=== PATIENT | female | born 1985 | race Caucasian/White ===

== ENCOUNTER 2024-07-16 13:12 | Outpatient (CLI) | payer OTHER | END 2024-07-16 14:07 | disposition home or self-care (01) | LOC: NST 13:12 | PROVIDERS: ATTEND Obstetrics & Gynecology Maternal & Fetal Medicine | DX: Z34.83 Encounter for supervision of other normal pregnancy, third trimester (principal) ==

== ENCOUNTER 2024-08-10 16:31 | Outpatient (CLI) | payer OTHER | END 2024-08-10 16:50 | disposition home or self-care (01) | LOC: NST 16:31 | PROVIDERS: ATTEND Obstetrics & Gynecology Gynecology | DX: Z34.83 Encounter for supervision of other normal pregnancy, third trimester (principal) ==

== ENCOUNTER 2024-08-24 08:07 | Outpatient (CLI) | payer OTHER | END 2024-08-24 09:34 | disposition home or self-care (01) | LOC: NST 08:07 | PROVIDERS: ATTEND Obstetrics & Gynecology Gynecology | DX: Z34.83 Encounter for supervision of other normal pregnancy, third trimester (principal) ==

== ENCOUNTER 2024-08-27 12:12 | Outpatient (CLI) | payer OTHER | END 2024-08-27 13:16 | disposition home or self-care (01) | LOC: NST 12:12 | PROVIDERS: ATTEND Obstetrics & Gynecology Gynecology | DX: Z34.83 Encounter for supervision of other normal pregnancy, third trimester (principal) ==

== ENCOUNTER 2024-08-28 14:16 | Inpatient (IN) | payer OTHER ==
[~2024-08-28] VITALS: Ht 167.6 cm; Wt 133.8 kg
[2024-08-28] MEDS ORDERED: FAMOTIDINE/PF 20 MG/2 ML VIAL IV PRN (14:30)
[2024-08-28] MEDS ORDERED: RINGERS SOLUTION,LACTATED 1,000 ML IV SCH (14:30)
[2024-08-28 15:55] VITALS: BP 120/79
[2024-08-28 16:10] LABS: HEMATOCRIT 34.2 % (36.0-45.00); HEMOGLOBIN 11.9 g/dL (12.0-15.00); MEAN CELL VOLUME 81.5 fL (80.00-100.00); MEAN CORPUSCULAR HEMOGLOBIN 28.4 pg (27.00-32.0); MEAN CORPUSCULAR HGB CONC 34.9 g/dl (32.0-36.0); PLATELET COUNT 243 K/uL (150-450); RED BLOOD COUNT 4.19 M/uL (4.00-6.00); RED CELL DISTRIBUTION WIDTH 15.2 % (11.5-14.5)
[2024-08-28 16:13] LABS: PH,URINE 6.5 (5.0-8.0); URINE APPEARANCE Cloudy; URINE BILIRRUBIN Negative (NEGATIVE); URINE BLOOD Negative; URINE COLOR Dark Yellow; URINE GLUCOSE Negative (NEGATIVE); URINE KETONE Trace (NEGATIVE); URINE LEUKOCYTE Moderate; URINE NITRATE Negative; URINE PROTEIN 30 (NEGATIVE)
[2024-08-28 16:17] LABS: URINE BACTERIA 8773.3 uL (0.0-1933); URINE EPITHELIAL CELLS 101.8 uL (0.0-38.8); URINE RBC 4.1 uL (0.0-20.8); URINE WBC 132.6 uL (0.0-23.2)
[2024-08-28 16:29] LABS: URINE CAST 0.76 uL (0.0-1.40)
[2024-08-28 16:44] LABS: BILIRUBIN TOTAL 0.33 mg/dL (0.3-1.2); CREATININE SERUM 0.51 mg/dL (0.55-1.02); GFR 132.89; GLOBULINA 3.6 G/DL (2.4-3.5); POTASSIUM 4.11 mEq/L (3.5-5.1); TOTAL PROTEIN 6.6 gm/dL (6.4-8.2)
[2024-08-28] MEDS ORDERED: MISOPROSTOL 25 MCG TABLET VAG ONE (19:00)
[2024-08-28] MEDS ORDERED: LABETALOL HCL 200 MG TABLET PO SCH (21:00)
[2024-08-28 21:23] VITALS: BP 114/59
[2024-08-29] VITALS: BP 90/49
[2024-08-29 04:00] VITALS: BP 93/56
[2024-08-29 07:24] VITALS: BP 136/80
[2024-08-29] MEDS ORDERED: OXYTOCIN 500 ML IV ONE (07:30)
[2024-08-29 11:30] VITALS: BP 124/82
[2024-08-29] MEDS ORDERED: RINGERS SOLUTION,LACTATED 1,000 ML IV SCH (12:15)
[2024-08-29] MEDS ORDERED: MORPHINE SULFATE 4 MG/ML CARTRIDGE IV PRN (12:15)
[2024-08-29] MEDS ORDERED: KETOROLAC TROMETHAMINE 30 MG VIAL IV SCH (12:15)
[2024-08-29] MEDS ORDERED: CEFAZOLIN SODIUM 1,000 MG VIAL IV ONE (12:30)
[2024-08-29] MEDS ORDERED: OXYTOCIN 1,000 ML IV ONE (12:30)
[2024-08-29] MEDS ORDERED: MORPHINE SULFATE 4 MG/ML VIAL IV ONE ×3 (15:00→16:30)
[2024-08-29] MEDS ORDERED: GABAPENTIN 300 MG CAPSULE PO SCH (17:00)
[2024-08-29] MEDS ORDERED: KETOROLAC TROMETHAMINE 30 MG VIAL IV ONE (17:30)
[2024-08-29] MEDS ORDERED: ACETAMINOPHEN 500 MG GEL..CAP PO SCH (18:00)
[2024-08-29] MEDS ORDERED: ONDANSETRON HCL 2 MG/ML VIAL IV SCH (18:00)
[2024-08-29 19:00] VITALS: BP 150/80
[2024-08-30] VITALS: BP 106/67
[2024-08-30] MEDS ORDERED: OxyCODONE HCL 5 MG TABLET (ROXICODONE) PO PRN (08:00)
[2024-08-30] MEDS ORDERED: KETOROLAC TROMETHAMINE 10 MG TABLET PO SCH (08:00)
[2024-08-30 08:10] VITALS: BP 112/64
[2024-08-30] MEDS ORDERED: DOCUSATE SODIUM 100MG CAP PO SCH (09:00)
[2024-08-30] MEDS ORDERED: OXYTOCIN 10 UNITS/ML VIAL IV ONE (10:15)
[2024-08-30] MEDS ORDERED: ERYTHROMYCIN BASE OPHT 1GM EACH TUBE OP ONE (10:15)
[2024-08-30 14:18] LABS: HEMATOCRIT 31.8 % (36.0-45.00); HEMOGLOBIN 10.8 g/dL (12.0-15.00); MEAN CELL VOLUME 84.7 fL (80.00-100.00); MEAN CORPUSCULAR HEMOGLOBIN 28.7 pg (27.00-32.0); MEAN CORPUSCULAR HGB CONC 33.9 g/dl (32.0-36.0); PLATELET COUNT 207 K/uL (150-450); RED BLOOD COUNT 3.76 M/uL (4.00-6.00); RED CELL DISTRIBUTION WIDTH 14.7 % (11.5-14.5)
[2024-08-30 16:43] VITALS: BP 101/62
[2024-08-31 01:49] VITALS: BP 116/75
[2024-08-31 08:50] VITALS: BP 120/81
== END 2024-08-31 13:32 | disposition home or self-care (01) | DRG 787 ==
LOC: LDR 14:16 → O/R 14:16 → OB/GYN 08-29 14:40
PROVIDERS: ADMIT Obstetrics & Gynecology Gynecology; ATTEND Obstetrics & Gynecology Gynecology
PROC: 3E0P7VZ Introduction of Hormone into Female Reproductive, Via Natural or Artificial Opening (ICD-10-PCS; 2024-08-28)
PROC: 4A1HXCZ Monitoring of Products of Conception, Cardiac Rate, External Approach (ICD-10-PCS; 2024-08-28)
PROC: 3E033VJ Introduction of Other Hormone into Peripheral Vein, Percutaneous Approach (ICD-10-PCS; 2024-08-29)
PROC: 10D00Z1 Extraction of Products of Conception, Low, Open Approach (ICD-10-PCS; principal; 2024-08-29 18:00)
DX: O61.0 Failed medical induction of labor (principal); O10.02 Pre-existing essential hypertension complicating childbirth; O36.8130 Decreased fetal movements, third trimester, not applicable or unspecified; Z3A.37 37 weeks gestation of pregnancy; Z37.0 Single live birth; Z20.822 Contact with and (suspected) exposure to COVID-19